=== PATIENT | female | born 1955 | race Caucasian/White ===

== ENCOUNTER 2016-12-27 14:56 | Outpatient (RCR) | payer MEDICAID ==
[~2016-12-27] VITALS: Ht 162.6 cm; Wt 113.4 kg
[~2016-12-27 14:56] MED LIST: ALLP300T PO; ALPR1T PO; ALPR2TAB2 PO; AMLO1CAP31 PO; CITA20TA4 PO; CLCX200C; CLCX200C PO; CYCL-97 PO; CYCL10TA9; CYCL10TA9 PO; FURO40TA4 PO; GEMF600T3 PO; HYDR-2890 PO; HYDR-34 PO; LNS30CCR PO; MELA1TAB; OXYC-12 PO; OXYC-188; ROPI2TAB4 PO; STRESS B COMPLEX; [UNRECOGNIZED DRUG - CODE]
[2016-12-27] MEDS ORDERED: HEParin (CENTRAL IV FLUSH) 500 UNIT/5 ML SYR ONE (15:15)
[2016-12-27] MEDS ORDERED: HEParin (CENTRAL IV FLUSH) 500 UNIT/5 ML SYR IV PRN (15:30)
[2016-12-27 16:03] LABS: BASOPHILS % (AUTO) 0 % (0-10); EOSINOPHILS # (AUTO) 0.3 10^3/uL (0.0-0.3); EOSINOPHILS % (AUTO) 4 % (0-10); LYMPHOCYTES # (AUTO) 2.7 X 10^3 (1.0-4.0); LYMPHOCYTES % (AUTO) 36 % (12-44); MEAN CORPUSCULAR HEMOGLOBIN 28 PG (25-34); MEAN CORPUSCULAR HGB CONC 32 G/DL (32-36); MEAN CORPUSCULAR VOLUME 87 FL (80-99); MEAN PLATELET VOLUME 11.6 FL (7.4-10.4); MONOCYTES # (AUTO) 0.6 X 10^3 (0.0-1.0); MONOCYTES % (AUTO) 8 % (0-12); NEUTROPHILS # (AUTO) 3.9 X 10^3 (1.8-7.8); NEUTROPHILS % (AUTO) 51 % (42-75); PLATELET COUNT 208 10^3/uL (130-400); RED BLOOD COUNT 4.14 10^6/uL (4.35-5.85); RED CELL DISTRIBUTION WIDTH 15.5 % (10.0-14.5); WHITE BLOOD COUNT 7.6 10^3/uL (4.3-11.0)
[2016-12-27 16:24] LABS: ALBUMIN 3.4 G/DL (3.2-4.5); BILIRUBIN,TOTAL 0.2 MG/DL (0.1-1.0); CALCIUM 8.7 MG/DL (8.5-10.1); CREATININE SERUM 1.06 MG/DL (0.60-1.30); POTASSIUM 3.6 MMOL/L (3.6-5.0); TOTAL PROTEIN 6.6 G/DL (6.4-8.2); URIC ACID 5.1 MG/DL (2.6-7.2)
[2016-12-27 16:42] LABS: ERYTHROCYTE SEDIMENTATION RATE 17 MM/HR (0-30)
[2016-12-27 16:50] VITALS: BP 142/70
== END 2017-03-27 | disposition home or self-care (01) ==
LOC: SDC 14:56
PROVIDERS: ATTEND Family Medicine
DX: I10 Essential (primary) hypertension (principal); E78.5 Hyperlipidemia, unspecified; E66.9 Obesity, unspecified; M17.12 Unilateral primary osteoarthritis, left knee; M10.062 Idiopathic gout, left knee; Z45.2 Encounter for adjustment and management of vascular access device
CPT/HCPCS: 36415; 80053; 80061; 83036; 84443; 84550; 85025; 85652; 96523

== ENCOUNTER 2017-07-04 13:06 | Outpatient (CLI) | payer MEDICAID ==
[~2017-07-04] VITALS: Ht 157.5 cm; Wt 104.3 kg
[2017-07-04] MEDS ORDERED: methylPREDNISolone 80 MG/ML (DEPO MEDROL) VIAL ONE (13:35)
[2017-07-04 13:50] VITALS: BP 132/98
[2017-07-04 14:17] VITALS: BP 140/118
== END 2017-07-04 14:20 | disposition home or self-care (01) ==
LOC: CARD 13:06
PROVIDERS: ATTEND Pain Medicine Interventional Pain Medicine
DX: M51.36 Other intervertebral disc degeneration, lumbar region (principal); I10 Essential (primary) hypertension; K21.9 Gastro-esophageal reflux disease without esophagitis; F32.9 Major depressive disorder, single episode, unspecified; M19.91 Primary osteoarthritis, unspecified site; R51 Headache; M10.9 Gout, unspecified; Z87.891 Personal history of nicotine dependence; Z79.899 Other long term (current) drug therapy
CPT/HCPCS: 62323

== ENCOUNTER 2018-04-24 14:24 | Outpatient (RCR) | payer MEDICAID ==
[2018-05-09] MEDS ORDERED: BACL10TA (06:57)
[2018-05-09] MEDS ORDERED: ALLO100T PO (06:57)
[2018-05-09] MEDS ORDERED: BENA40TA5 (06:57)
[2018-05-09] MEDS ORDERED: AMLO10TA6 (06:57)
== END 2018-05-19 15:43 | disposition home or self-care (01) ==
PROVIDERS: ATTEND Orthopaedic Surgery
DX: M25.512 Pain in left shoulder (principal)

== ENCOUNTER 2018-05-09 05:59 | Emergency (ER) | payer MEDICAID ==
[~2018-05-09] VITALS: Ht 157.5 cm; Wt 104.3 kg
[2018-05-09] MEDS ORDERED: PANTOPRAZOLE 40 MG (PROTONIX) VIAL IV STA (06:11)
[2018-05-09] MEDS ORDERED: LACTATED RINGERS 1,000 ML IV ONE (06:11)
[2018-05-09] MEDS ORDERED: ONDANSETRON 4 MG/2 ML (SDV) Z0FRAN IVP ONE (06:15)
--- NOTE | 2018-05-09 06:19 | ED General ---
General Stated Complaint: SOB Source of Information: Patient (LIMITED HISTORIAN ABOUT PMH), EMS, Old Records History of Present Illness Date Seen by Provider: May 09, 2018 Time Seen by Provider: 05:56 Initial Comments PT ARRIVES VIA EMS FROM HOME MULTIPLE COMPLAINTS STATES SHE HAS BEEN SICK SINCE YESTERDAY C/O GENERALIZED ABDOMINAL PAIN BUT MORE ALL ACROSS UPPER ABDOMEN C/O NAUSEA/VOMITING/DIARRHEA--VOMITED > 10 TIMES--STATES LOOKS LIKE COFFEE, DIARRHEA --" ALL MY TOWELS AND ALL MY SHEET'S WORTH" -- UNKNOWN NUMBER OF STOOLS , STATES IS WATERY C/O SHORTNESS OF BREATH C/O BURNING IN CHEST WHEN SHE BREATHES C/O CHILLS DENIES SIGNIFICANT COUGH HAS NOT CHECKED TEMP NO KNOWN SICK CONTACTS OR SUSPICIOUS FOODS PT HAD COPD AND WEARS O2 AT HS PT HAS INHALER AND NEBULIZER AT HOME, USED NEBULIZER X AT 1800 YESTERDAY. HAS NOT USED IT AT ANY OTHER TIME AND HAS NOT USED INHALER. HAS NOT WORN O2 TONIGHT EMS REPORT INITIAL O2 SAT WAS 91% ON ROOM AIR--PT WAS NOT WEARING HOME O2 WHEN THEY ARRIVED EMS GAVE DUO NEB TREATMENT ENROUTE PCP: DR. Amanda ARREOLA Allergies and Home Medications Allergies Coded Allergies: Penicillins (Unverified Allergy, Mild, 12/28/08) codeine (Unverified Allergy, Mild, RASH, SWELLING.. PATIENT CAN TAKE LORTAB, 01/05/09) ketorolac (Unverified Allergy, Mild, 12/28/08) pentazocine (Unverified Allergy, Mild, 12/28/08) aspirin (Unverified Adverse Reaction, Mild, 12/28/08) Home Medications Allopurinol 300 Mg Tab, 300 MG PO DAILY, (Reported) Alprazolam 2 Mg Tablet, 1 MG PO TID PRN, (Reported) TAKES FOR ANXIETY Amlodipine Besylate/Benazepril 1 Each Capsule, 1 TAB PO DAILY, (Reported) Celecoxib 200 Mg Capsule, 1 TAB PO DAILY, (Reported) Citalopram Hydrobromide 20 Mg Tablet, 20 MG PO DAILY, (Reported) Cyclobenzaprine Hcl 10 Mg Tablet, 1 TAB PO TID PRN, (Reported) TAKES FOR MUSCLE TIGHTNESS Furosemide 40 Mg Tablet, 1 EACH PO DAILY, (Reported) Gemfibrozil 600 Mg Tablet, 1 TAB PO DAILY, (Reported) Hydrocodone Bit/Acetaminophen 1 Each Tablet, 1 EACH PO Q6 PRN, (Reported) TAKES FOR PAIN CONTROL Lansoprazole 30 Mg Cap, 30 MG PO DAILY, (Reported) Ropinirole Hcl 2 Mg Tablet, 2 MG PO HS, (Reported) Patient Home Medication List Home Medication List Reviewed: Yes Review of Systems Review of Systems Constitutional: chills EENTM: no symptoms reported Respiratory: see HPI, short of breath Cardiovascular: see HPI, chest pain; No edema, No palpitations Gastrointestinal: see HPI, abdominal pain, diarrhea, loss of appetite, nausea, vomiting Genitourinary: no symptoms reported Musculoskeletal: no symptoms reported Skin: no symptoms reported Psychiatric/Neurological: No Symptoms Reported Hematologic/Lymphatic: No Symptoms Reported Immunological/Allergic: no symptoms reported Past Cuhbuqn-Bsujtm-Mrjbge Hx Patient Social History Alcohol Use: Past History (MODERATE USE IN PAST) Recreational Drug Use: Yes (THC; CHRONIC NARCOTIC AND BENZODIAZEPINE USE/ABUSE/ OVERDOSES; "SPEED" ; TESTED + FOR METH/AMPHETAMINES AND THC 05/09/18 ) Drug of Choice: THC, "SPEED"; CHRONIC NARCOTIC AND BENZO USE/ABUSE/OD'S Smoking Status: Current Everyday Smoker (CIGARETTES WHEN YOUNG, SMOKES PIPE NOW ) Type Used: Cigarettes, Pipe Recent Foreign Travel: No Contact w/Someone Who Travel: No Recent Hopitalizations: No Immunizations Up To Date Tetanus Booster (TDap): Unknown Date of Pneumonia Vaccine: Jun 02, 2009 Seasonal Allergies Seasonal Allergies: No Past Medical History Surgeries: Yes (BACK SURGERY; X 2; PORT LEFT CHEST-BROKE AND WENT INTO HEART AND REMOVED THROUGH FEMORAL ARTERY 04/2010--NOW WITH PORT RIGHT CHEST ; LINQ DEVICE FOR SYNCOPE; BILATERAL KNEE SCOPES; BENIGN THROAT NODULE) Appendectomy, Gallbladder, Orthopedic, Tubal Ligation Respiratory: Yes COPD Cardiac: Yes (NORMAL STRESS TEST, ECHO, TILT TABLE TESTS 10/2014 AND LINQ RECORDING DEVICE INPLANTED 10/2014 FOR SYNCOPE) High Cholesterol, Hypertension, Syncope Neurological: Yes (MEMORY PROBLEMS) Headaches /Migraines Reproductive Disorders: No Sexually Transmitted Disease: No Genitourinary: Yes Renal Failure Gastrointestinal: Yes Colitis, Gastroesophageal Reflux Musculoskeletal: Yes (RESTLESS LEG SYNDROME; KNEE PAIN; CHRONIC GENERALIZED PAIN; CHRONIC NARCOTIC USE) Chronic Back Pain, Gout Endocrine: Yes (OBESE) HEENT: No (TEETH REMOVED) Cancer: No Psychosocial: Yes (OVERDOSES OF NARCOTICS AND BENZODIAZEPINES; PT ADMITS TO BEING A WITCH/PRACTICES WICCA) Anxiety Physical Exam Vital Signs Vital Signs - First Documented 05/09/18 06:00 Temp 99.6 Pulse 93 Resp 23 B/P (MAP) 128/99 (109) Pulse Ox 96 O2 Delivery Nasal Cannula O2 Flow Rate 4.00 Capillary Refill : Height, Weight, BMI Height: 5'2.00" Weight: 230lbs. 0.0oz. 104.224608yn; 42.1 BMI Method:Stated General Appearance: Obese, Other (ANXIOUS, MOANING, SHIVERING/TREMULOUS. CONSTANT MOVEMENTS /THRASHING ALL OVER. ) HEENT: PERRL/EOMI, Other (EDENTULOUS) Neck: Normal Inspection Respiratory: Normal Breath Sounds, No Accessory Muscle Use, No Respiratory Distress, Decreased Breath Sounds (IN BASES), Other (PORT RIGHT CHEST) Cardiovascular: Regular Rate, Rhythm, No Edema, No JVD, No Murmur, Normal Peripheral Pulses Gastrointestinal: Normal Bowel Sounds, No Organomegaly, No Pulsatile Mass, Soft ; No Distended, No Guarding, No Hernia, No Mass, No Rebound; Tenderness ( DIFFUSE TENDERNESS) Back: No CVA Tenderness Extremity: Normal Capillary Refill, Normal Inspection, Normal Range of Motion, Non Tender, No Calf Tenderness, No Pedal Edema Neurologic/Psychiatric: Alert, Oriented x3, No Motor/Sensory Deficits, 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 ) Focused Exam Lactate Level 05/09/18 06:04: Lactic Acid Level 1.92 Lactic Acid Level Progress/Results/Core Measures Suspected Sepsis SIRS Temperature: Pulse: Respiratory Rate: Laboratory Tests 05/09/18 06:04: White Blood Count 11.0 Blood Pressure / Mean: 05/09/18 06:04: Lactic Acid Level 1.92 Laboratory Tests 05/09/18 06:04: Creatinine 1.29, INR Comment 1.1, Platelet Count 279, Total Bilirubin 0.3 Results/Orders Lab Results Laboratory Tests Test 05/09/18 06:04 05/09/18 06:14 05/09/18 07:03 05/09/18 09:20 Range/Units White Blood Count 11.0 4.3-11.0 10^3/uL Red Blood Count 4.47 4.35-5.85 10^6/uL Hemoglobin 12.6 11.5-16.0 G/DL Hematocrit 38 35-52 % Mean Corpuscular Volume 86 80-99 FL Mean Corpuscular Hemoglobin 28 25-34 PG Mean Corpuscular Hemoglobin Concent 33 32-36 G/DL Red Cell Distribution Width 17.6 H 10.0-14.5 % Platelet Count 279 130-400 10^3/uL Mean Platelet Volume 12.5 H 7.4-10.4 FL Neutrophils (%) (Auto) 63 42-75 % Lymphocytes (%) (Auto) 28 12-44 % Monocytes (%) (Auto) 8 0-12 % Eosinophils (%) (Auto) 2 0-10 % Basophils (%) (Auto) 0 0-10 % Neutrophils # (Auto) 6.9 1.8-7.8 X 10^3 Lymphocytes # (Auto) 3.0 1.0-4.0 X 10^3 Monocytes # (Auto) 0.8 0.0-1.0 X 10^3 Eosinophils # (Auto) 0.2 0.0-0.3 10^3/uL Basophils # (Auto) 0.0 0.0-0.1 10^3/uL Prothrombin Time 13.9 12.2-14.7 SEC INR Comment 1.1 0.8-1.4 Activated Partial Thromboplast Time 23 L 24-35 SEC Sodium Level 138 135-145 MMOL/L Potassium Level 3.5 L 3.6-5.0 MMOL/L Chloride Level 109 H 98-107 MMOL/L Carbon Dioxide Level 17 L 21-32 MMOL/L Anion Gap 12 5-14 MMOL/L Blood Urea Nitrogen 26 H 7-18 MG/DL Creatinine 1.29 0.60-1.30 MG/DL Estimat Glomerular Filtration Rate 42 BUN/Creatinine Ratio 20 Glucose Level 117 H 70-105 MG/DL Lactic Acid Level 1.92 0.50-2.00 MMOL/L Calcium Level 8.8 8.5-10.1 MG/DL Corrected Calcium 9.0 8.5-10.1 MG/DL Magnesium Level 2.0 1.8-2.4 MG/DL Total Bilirubin 0.3 0.1-1.0 MG/DL Aspartate Amino Transf (AST/SGOT) 23 5-34 U/L Alanine Aminotransferase (ALT/SGPT) 24 0-55 U/L Alkaline Phosphatase 61 40-136 U/L Troponin I < 0.30 <0.30 NG/ML B-Type Natriuretic Peptide < 10.0 <100.0 PG/ML Total Protein 7.1 6.4-8.2 GM/DL Albumin 3.8 3.2-4.5 GM/DL Amylase Level 33 25-125 U/L Lipase 47 8-78 U/L Serum Alcohol < 10 <10 MG/DL Blood Gas Puncture Site RIGHT RADIAL RIGHT RADIAL Blood Gas Patient Temperature 99.6 100.3 Arterial Blood pH 7.25 *L 7.29 *L 7.37-7.43 Arterial Blood Partial Pressure CO2 46 H 43 35-45 MMHG Arterial Blood Partial Pressure O2 90 80 79-93 MMHG Arterial Blood HCO3 19 L 20 L 23-27 MMOL/L Arterial Blood Total CO2 20.4 L 21.2 21.0-31.0 MMOL/L Arterial Blood Oxygen Saturation 96 95 94-100 % Arterial Blood Base Excess -6.8 L -5.3 L -2.5-2.5 MMOL/L Duran Test YES-POS YES-POS Blood Gas Ventilator Setting NO NO Blood Gas Inspired Oxygen 4L 30% Urine Color YELLOW Urine Clarity CLEAR Urine pH 6 5-9 Urine Specific [place] 1.020 1.016-1.022 Urine Protein 2+ H NEGATIVE Urine Glucose (UA) NEGATIVE NEGATIVE Urine Ketones NEGATIVE NEGATIVE Urine Nitrite NEGATIVE NEGATIVE Urine Bilirubin NEGATIVE NEGATIVE Urine Urobilinogen NORMAL NORMAL MG/DL Urine Leukocyte Esterase NEGATIVE NEGATIVE Urine RBC (Auto) NEGATIVE NEGATIVE Urine RBC NONE /HPF Urine WBC NONE /HPF Urine Squamous Epithelial Cells NONE /HPF Urine Crystals NONE /LPF Urine Bacteria NEGATIVE /HPF Urine Casts NONE /LPF Urine Mucus NEGATIVE /LPF Urine Culture Indicated NO Urine Opiates Screen POSITIVE H NEGATIVE Urine Oxycodone Screen NEGATIVE NEGATIVE Urine Methadone Screen NEGATIVE NEGATIVE Urine Propoxyphene Screen NEGATIVE NEGATIVE Urine Barbiturates Screen NEGATIVE NEGATIVE Ur Tricyclic Antidepressants Screen NEGATIVE NEGATIVE Urine Phencyclidine Screen NEGATIVE NEGATIVE Urine Amphetamines Screen POSITIVE H NEGATIVE Urine Methamphetamines Screen POSITIVE H NEGATIVE Urine Benzodiazepines Screen POSITIVE H NEGATIVE Urine Cocaine Screen NEGATIVE NEGATIVE Urine Cannabinoids Screen POSITIVE H NEGATIVE My Orders Orders - KORY,KACIE K DO Saline Lock/Iv-Start (05/09/18 06:11) Ekg Tracing (05/09/18 06:11) Catheter(Urinary) Insert & Ass 03,15 (05/09/18 06:11) O2 (05/09/18 06:11) Monitor-Rhythm Ecg Trace Only (05/09/18 06:11) Alcohol (05/09/18 06:11) Amylase (05/09/18 06:11) Arterial Blood Gas (05/09/18 06:11) BNP (05/09/18 06:11) Cbc With Automated Diff (05/09/18 06:11) Comprehensive Metabolic Panel (05/09/18 06:11) Drug Screen Stat (Urine) (05/09/18 06:11) Lactic Acid Analyzer (05/09/18 06:11) Lipase (05/09/18 06:11) Magnesium (05/09/18 06:11) Protime With Inr (05/09/18 06:11) Partial Thromboplastin Time (05/09/18 06:11) Troponin I (05/09/18 06:11) Ua Culture If Indicated (05/09/18 06:11) Blood Culture (05/09/18 06:11) Chest 1 View, Ap/Pa Only (05/09/18 06:11) Saline Lock/Iv-Start (05/09/18 06:11) Lactated Ringers (Lr 1000 Ml Iv Solution (05/09/18 06:11) Ondansetron Injection (Zofran Injectio (05/09/18 06:15) Pantoprazole Injection (Protonix Injecti (05/09/18 06:11) Ct Chest/Abdomen/Pelvis Wo (05/09/18 06:55) Ceftriaxone For Iv Use (Rocephin For I (05/09/18 08:00) Ceftriaxone For Iv Use (Rocephin For I (05/09/18 08:01) Ns (Ivpb) (Sodium Chloride 0.9% Ivpb Bag (05/09/18 08:01) Azithromycin Injection (Zithromax Inject (05/09/18 09:15) Arterial Blood Gas (05/09/18 09:06) Medications Given in ED Current Medications Medications Dose Ordered Sig/Shy Route Start Time Stop Time Status Last Admin Dose Admin Azithromycin 500 mg/Sodium Chloride 250 ml @ 250 mls/hr ONCE ONCE IV 05/09/18 09:15 05/09/18 10:14 DC 05/09/18 09:34 250 MLS/HR Ceftriaxone Sodium 1000 mg/ Sodium Chloride 60 ml @ 100 mls/hr ONCE ONCE IV 05/09/18 08:00 05/09/18 11:06 DC 05/09/18 08:17 100 MLS/HR Vital Signs/I&O 05/09/18 05/09/18 05/09/18 05/09/18 06:52 07:37 07:43 08:42 Pulse 109 99 96 100 Resp 21 20 18 18 B/P (MAP) 129/73 (91) 136/88 (104) Pulse Ox 94 96 93 94 O2 Delivery NIV Bilevel NIV Bilevel 05/09/18 05/09/18 09:25 10:55 Pulse 105 100 Resp 24 18 B/P (MAP) 131/76 Pulse Ox 91 93 O2 Delivery NIV Bilevel Capillary Refill : Progress Note : Progress Note O2 SATS 87-88% ON ROOM AIR ON ARRIVAL PT PLACED ON O2 AND SATS UP TO LOW 90'S, THEN PLACED ON BIPAP WITH SIGNIFICANT IMPROVEMENT IN CONDITION AND O2 SATS 985, RESPIRATIONS EVEN AND UNLABORED, AND INCREASED AERATION NO DETERIORATION IN PT'S CONDITION DURING ER STAY ECG Initial ECG Impression Date: May 09, 2018 Initial ECG Impression Time: 06:04 Initial ECG Rate: 98 Initial ECG Rhythm: Normal Sinus (MUCH ARTIFACT) Diagnostic Imaging Comments CXR--RLL INFILTRATE, PER RADIOLOGIST REPORT @ 0747 CT CHEST/ABDOMEN/PELVIS ( NO IV CONTRAST AVAILABLE IN HOSPITAL) --PATCHY AIRSPACE DENSITIES IN RIGHT UPPER AND LOWER LOBES, AND MINIMAL INVOLVEMENT IN RIGHT MIDDLE LOBE. ALSO MILD INVOLVEMENT IN LEFT UPPER LOBE--C/W MULTIFOCAL PNEUMONIA. CHRONIC / STABLE FINDINGS ON ABDOMEN. NO ACUTE PROCESS PER RADIOLOGIST REPORT @ 0855 Reviewed: Reviewed by Me Departure Communication (Admissions) THIS HOSPITAL CURRENTLY ON COMPLETE DIVERSION, NO BEDS CURRENTLY AVAILABLE HERE. 0855--CALLED [facility] HOSPITALIST 0921--CALLED [facility] 0923--SPOKE WITH DR. MENDOZA, HOSPITALIST, ACCEPTS PT FOR ADMIT DELAY IN TRANSFER DUE TO MULTIPLE PATIENTS BEING TRANSFERRED AT THE SAME TIME. Impression Primary Impression: MULTILOBAR PNEUMONIA Additional Impressions: Hypoxia Illicit drug use Acute on chronic respiratory failure Disposition: 02 XFER SHT-TRM HOSP Condition: Improved Departure-Patient Inst. Referrals: BARB MADERA DO (PCP) Primary Care Physician KACIE HORN DO May 09, 2018 06:19
[2018-05-09 06:28] LABS: BASOPHILS % (AUTO) 0 % (0-10); EOSINOPHILS # (AUTO) 0.2 10^3/uL (0.0-0.3); EOSINOPHILS % (AUTO) 2 % (0-10); HEMATOCRIT 38 % (35-52); HEMOGLOBIN 12.6 G/DL (11.5-16.0); LYMPHOCYTES % (AUTO) 28 % (12-44); MEAN CORPUSCULAR HEMOGLOBIN 28 PG (25-34); MEAN CORPUSCULAR HGB CONC 33 G/DL (32-36); MEAN CORPUSCULAR VOLUME 86 FL (80-99); MEAN PLATELET VOLUME 12.5 FL (7.4-10.4); MONOCYTES # (AUTO) 0.8 X 10^3 (0.0-1.0); MONOCYTES % (AUTO) 8 % (0-12); NEUTROPHILS # (AUTO) 6.9 X 10^3 (1.8-7.8); NEUTROPHILS % (AUTO) 63 % (42-75); PLATELET COUNT 279 10^3/uL (130-400); RED BLOOD COUNT 4.47 10^6/uL (4.35-5.85); RED CELL DISTRIBUTION WIDTH 17.6 % (10.0-14.5)
[2018-05-09 06:35] LABS: ABG BASE EXCESS -6.8 MMOL/L (-2.5-2.5); ABG OXYGEN SATURATION 96 % (94-100); ABG PCO2 46 MMHG (35-45); ABG PO2 90 MMHG (79-93); ABG TCO2 20.4 MMOL/L (21.0-31.0)
[2018-05-09 06:38] LABS: ABG PH 7.25 (7.37-7.43); ALLENS TEST YES-POS; INSPIRED O2 4L; PATIENT TEMP 99.6; VENTILATOR NO
[2018-05-09 06:40] LABS: INR 1.1 (0.8-1.4); PROTHROMBIN TIME PATIENT 13.9 SEC (12.2-14.7)
[2018-05-09 06:50] LABS: ALANINE AMINOTRANSFERASE 24 U/L (0-55); ALBUMIN 3.8 GM/DL (3.2-4.5); ALKALINE PHOSPHATASE 61 U/L (40-136); AMYLASE 33 U/L (25-125); BILIRUBIN,TOTAL 0.3 MG/DL (0.1-1.0); BUN/CREATININE RATIO 20; CALCIUM 8.8 MG/DL (8.5-10.1); CARBON DIOXIDE 17 MMOL/L (21-32); CHLORIDE 109 MMOL/L (98-107); CREATININE SERUM 1.29 MG/DL (0.60-1.30); GFR ESTIMATED 42; GLUCOSE 117 MG/DL (70-105); LIPASE 47 U/L (8-78); POTASSIUM 3.5 MMOL/L (3.6-5.0); SODIUM 138 MMOL/L (135-145); TOTAL PROTEIN 7.1 GM/DL (6.4-8.2)
[2018-05-09 06:52] VITALS: BP 153/101
[2018-05-09] MEDS ORDERED: BACL10TA (06:57)
[2018-05-09] MEDS ORDERED: BENA40TA5 (06:57)
[2018-05-09] MEDS ORDERED: ALLO100T PO (06:57)
[2018-05-09] MEDS ORDERED: AMLO10TA6 (06:57)
--- OUTSIDE RECORDS SUMMARY | 2018-05-09 06:57 | XMS REPORT | Continuity of Care Document ---
Author Author [facility] Ctr of [facility] Ctr of [facility] Address Unknown Phone Unavailable Allergies Active Description Code Type Severity Reaction Onset Reported/Identified Relationship to Patient Clinical Status Yes aspirin [id number] Drug Allergy Mild N/A 12/28/2008 Yes ketorolac [id number] Drug Allergy Mild N/A 12/28/2008 Yes Penicillins [id number] Drug Allergy Mild N/A 12/28/2008 Yes pentazocine [id number] Drug Allergy Mild N/A 12/28/2008 Yes codeine [id number] Drug Allergy Mild RASH, SWELLING. 01/05/2009 Yes aspirin Drug Allergy N/A N/A 06/26/2011 Yes codeine Drug Allergy N/A N/A 06/26/2011 Yes Penicillins Drug Allergy N/A N/A 06/26/2011 Yes Talwin Drug Allergy N/A N/A 06/26/2011 Yes Toradol Drug Allergy N/A N/A 08/24/2014 Medications There is no data. Problems Date Dx Coded Attending Type Code Diagnosis Diagnosed By 06/26/2011 MADL DIRECTOR SPEECH LANGUAGE, ANAIS L 278.00 OBESITY UNSPECIFIED 06/26/2011 MADL DIRECTOR SPEECH LANGUAGE, ANAIS L 338.29 OTHER CHRONIC PAIN 06/26/2011 MADL DIRECTOR SPEECH LANGUAGE, ANAIS L 715.00 OSTEOARTHROSIS GENERALIZED INVOLVING UNSPECIFIED SITE 06/26/2011 MADL DIRECTOR SPEECH LANGUAGE, ANAIS L 724.2 LUMBAGO 06/26/2011 MADL DIRECTOR SPEECH LANGUAGE, ANAIS L 278.00 OBESITY UNSPECIFIED 06/26/2011 MADL DIRECTOR SPEECH LANGUAGE, ANAIS L 338.29 OTHER CHRONIC PAIN 06/26/2011 MADL DIRECTOR SPEECH LANGUAGE, ANAIS L 715.00 OSTEOARTHROSIS GENERALIZED INVOLVING UNSPECIFIED SITE 06/26/2011 MADL DIRECTOR SPEECH LANGUAGE, ANAIS L 724.2 LUMBAGO 06/26/2011 MADL DIRECTOR SPEECH LANGUAGE, ANAIS L 278.00 OBESITY UNSPECIFIED 06/26/2011 TRAL DIRECTOR SPEECH LANGUAGE, ANAIS L 338.29 OTHER CHRONIC PAIN 06/26/2011 MADL DIRECTOR SPEECH LANGUAGE, ANAIS L 715.00 OSTEOARTHROSIS GENERALIZED INVOLVING UNSPECIFIED SITE 06/26/2011 MADL DIRECTOR SPEECH LANGUAGE, ANAIS L 724.2 LUMBAGO 12/24/2011 Ot 285.9 ANEMIA NOS 12/24/2011 Ot 348.89 OTHER CONDITIONS OF BRAIN 12/24/2011 Ot 780.2 SYNCOPE AND COLLAPSE 04/03/2012 Ot 278.01 MORBID OBESITY 04/03/2012 Ot 459.81 VENOUS INSUFFICIENCY NOS 04/03/2012 Ot 496 CHR AIRWAY OBSTRUCT NEC 04/03/2012 Ot V58.69 OTH MED,LT, CURRENT USE 04/03/2012 Ot V85.42 BODY MASS INDEX 45.0-49.9, ADULT 08/24/2014 MADL DIRECTOR SPEECH LANGUAGE, ANAIS L 300.00 ANXIETY UNSPEC 08/24/2014 MADL DIRECTOR SPEECH LANGUAGE, ANAIS L 401.1 HYPERTENSION, BENIGN ESSENTIAL 08/24/2014 MADL DIRECTOR SPEECH LANGUAGE, ANAIS L 585.9 CHRONIC KIDNEY DISEASE UNSPECIFIED 08/24/2014 MADL DIRECTOR SPEECH LANGUAGE, ANAIS L 300.00 ANXIETY UNSPEC 08/24/2014 MADL DIRECTOR SPEECH LANGUAGE, ANAIS L 401.1 HYPERTENSION, BENIGN ESSENTIAL 08/24/2014 MADL DIRECTOR SPEECH LANGUAGE, ANAIS L 585.9 CHRONIC KIDNEY DISEASE UNSPECIFIED 08/24/2014 MADL DIRECTOR SPEECH LANGUAGE, ANAIS L 300.00 ANXIETY UNSPEC 08/24/2014 MADL DIRECTOR SPEECH LANGUAGE, ANAIS L 401.1 HYPERTENSION, BENIGN ESSENTIAL 08/24/2014 MADL DIRECTOR SPEECH LANGUAGE, ANAIS L 585.9 CHRONIC KIDNEY DISEASE UNSPECIFIED 08/25/2014 Ot 780.2 08/25/2014 Ot 799.02 08/25/2014 Ot V72.84 08/30/2014 MADL DIRECTOR SPEECH LANGUAGE, ANAIS L 465.9 UPPER RESPIRATORY INFECTION 08/30/2014 MADL DIRECTOR SPEECH LANGUAGE, ANAIS L 491.21 OBSTRUCTIVE CHRONIC BRONCHITIS WITH (ACUTE) EXACERBATION 09/21/2014 MADL, ANAIS L NEUROLOGY DIRECTOR Ot 300.00 09/21/2014 MADL, ANAIS L NEUROLOGY DIRECTOR Ot 382.9 09/21/2014 MADLJULIAANAIS L NEUROLOGY DIRECTOR Ot 403.10 09/21/2014 MADLJULIAANAIS L NEUROLOGY DIRECTOR Ot 585.9 09/21/2014 MADL, ANAIS L NEUROLOGY DIRECTOR Ot 715.00 09/21/2014 MADL, ANAIS L NEUROLOGY DIRECTOR Ot 724.2 11/25/2014 Ot 305.1 11/25/2014 Ot 401.9 11/25/2014 Ot 496 11/25/2014 Ot 786.50 11/26/2014 Ot 305.1 11/26/2014 Ot 401.9 11/26/2014 Ot 496 11/26/2014 Ot 786.50 11/26/2014 Ot 305.1 11/26/2014 Ot 401.9 11/26/2014 Ot 496 11/26/2014 Ot 780.2 11/26/2014 Ot 786.50 02/14/2015 ROSALIE CASAREZ DIRECTOR SPEECH LANGUAGE Ot 719.46 JOINT PAIN-L/LEG 02/14/2015 ROSALIE CASAREZ DIRECTOR SPEECH LANGUAGE Ot V65.2 PERSON FEIGNING ILLNESS 07/16/2016 Ot 780.2 SYNCOPE AND COLLAPSE 07/16/2016 Ot 799.02 HYPOXEMIA 07/16/2016 Ot V72.84 EXAM PRE- OPERATIVE NOS 07/16/2016 MADLJULIAANAIS L NEUROLOGY DIRECTOR Ot 300.00 ANXIETY STATE NOS 07/16/2016 MADL, ANAIS L NEUROLOGY DIRECTOR Ot 382.9 OTITIS MEDIA NOS 07/16/2016 MADL, ANAIS L NEUROLOGY DIRECTOR Ot 403.10 HYPTNSV CHR KID DIS, BENIGN, W CHR KD ST 07/16/2016 MADL, ANAIS L NEUROLOGY DIRECTOR Ot 585.9 CHRONIC KIDNEY DISEASE, UNSPECIFIED 07/16/2016 MADL, ANAIS L NEUROLOGY DIRECTOR Ot 715.00 GENERAL OSTEOARTHROSIS 07/16/2016 MADL, ANAIS L NEUROLOGY DIRECTOR Ot 724.2 LUMBAGO 07/16/2016 Ot 305.1 TOBACCO USE DISORDER 07/16/2016 Ot 401.9 HYPERTENSION NOS 07/16/2016 Ot 496 CHR AIRWAY OBSTRUCT NEC 07/16/2016 Ot 786.50 CHEST PAIN NOS 07/16/2016 Ot 305.1 TOBACCO USE DISORDER 07/16/2016 Ot 401.9 HYPERTENSION NOS 07/16/2016 Ot 496 CHR AIRWAY OBSTRUCT NEC 07/16/2016 Ot 786.50 CHEST PAIN NOS 07/16/2016 Ot 305.1 TOBACCO USE DISORDER 07/16/2016 Ot 401.9 HYPERTENSION NOS 07/16/2016 Ot 496 CHR AIRWAY OBSTRUCT NEC 07/16/2016 Ot 780.2 SYNCOPE AND COLLAPSE 07/16/2016 Ot 786.50 CHEST PAIN NOS 07/18/2016 STACY ARREOLA MD Ot Z45.2 ENCOUNTER FOR ADJUSTMENT AND MANAGEMENT 07/31/2016 STACY ARREOLA MD, Ot Z45.2 ENCOUNTER FOR ADJUSTMENT AND MANAGEMENT 01/01/2017 STACY ARREOLA MD Ot E66.9 OBESITY, UNSPECIFIED 01/01/2017 STACY ARREOLA MD, Ot E78.5 HYPERLIPIDEMIA, UNSPECIFIED 01/01/2017 STACY ARREOLA MD Ot I10 ESSENTIAL (PRIMARY) HYPERTENSION 01/01/2017 STACY ARREOLA MD Ot M10.062 IDIOPATHIC GOUT, LEFT KNEE 01/01/2017 STACY ARREOLA MD Ot M17.12 UNILATERAL PRIMARY OSTEOARTHRITIS, LEFT 01/01/2017 STACY ARREOLA MD Ot Z45.2 ENCOUNTER FOR ADJUSTMENT AND MANAGEMENT 01/16/2017 STACY ARREOLA MD Ot E66.9 OBESITY, UNSPECIFIED 01/16/2017 STACY ARREOLA MD, Ot E78.5 HYPERLIPIDEMIA, UNSPECIFIED 01/16/2017 STACY ARREOLA MD Ot I10 ESSENTIAL (PRIMARY) HYPERTENSION 01/16/2017 STACY ARREOLA MD Ot M10.062 IDIOPATHIC GOUT, LEFT KNEE 01/16/2017 STACY ARREOLA MD Ot M17.12 UNILATERAL PRIMARY OSTEOARTHRITIS, LEFT 01/16/2017 STACY ARREOLA MD Ot Z45.2 ENCOUNTER FOR ADJUSTMENT AND MANAGEMENT 03/27/2017 STACY ARREOLA MD Ot E66.9 OBESITY, UNSPECIFIED 03/27/2017 STACY ARREOLA MD Ot E78.5 HYPERLIPIDEMIA, UNSPECIFIED 03/27/2017 STACY ARREOLA MD Ot I10 ESSENTIAL (PRIMARY) HYPERTENSION 03/27/2017 STACY ARREOLA MD Ot M10.062 IDIOPATHIC GOUT, LEFT KNEE 03/27/2017 STACY ARREOLA MD Ot M17.12 UNILATERAL PRIMARY OSTEOARTHRITIS, LEFT 03/27/2017 STACY ARREOLA MD Ot Z45.2 ENCOUNTER FOR ADJUSTMENT AND MANAGEMENT 07/02/2017 Ot V72.84 EXAM PRE- OPERATIVE NOS 07/02/2017 MADL, ANAIS L NEUROLOGY DIRECTOR Ot 300.00 ANXIETY STATE NOS 07/02/2017 MADL, ANAIS L NEUROLOGY DIRECTOR Ot 382.9 OTITIS MEDIA NOS 07/02/2017 MADL, ANAIS L NEUROLOGY DIRECTOR Ot 403.10 HYPTNSV CHR KID DIS, BENIGN, W CHR KD ST 07/02/2017 MADL, ANAIS L NEUROLOGY DIRECTOR Ot 585.9 CHRONIC KIDNEY DISEASE, UNSPECIFIED 07/02/2017 MADL, ANAIS L NEUROLOGY DIRECTOR Ot 715.00 GENERAL OSTEOARTHROSIS 07/02/2017 MADL, ANAIS L NEUROLOGY DIRECTOR Ot 724.2 LUMBAGO 07/02/2017 Ot 305.1 TOBACCO USE DISORDER 07/02/2017 Ot 401.9 HYPERTENSION NOS 07/02/2017 Ot 496 CHR AIRWAY OBSTRUCT NEC 07/02/2017 Ot 786.50 CHEST PAIN NOS 07/02/2017 Ot 305.1 TOBACCO USE DISORDER 07/02/2017 Ot 401.9 HYPERTENSION NOS 07/02/2017 Ot 496 CHR AIRWAY OBSTRUCT NEC 07/02/2017 Ot 786.50 CHEST PAIN NOS 07/02/2017 Ot 305.1 TOBACCO USE DISORDER 07/02/2017 Ot 401.9 HYPERTENSION NOS 07/02/2017 Ot 496 CHR AIRWAY OBSTRUCT NEC 07/02/2017 Ot 780.2 SYNCOPE AND COLLAPSE 07/02/2017 Ot 786.50 CHEST PAIN NOS 07/02/2017 STACY ARREOLA MD Ot Z45.2 ENCOUNTER FOR ADJUSTMENT AND MANAGEMENT 07/02/2017 STACY ARREOLA MD Ot E66.9 OBESITY, UNSPECIFIED 07/02/2017 STACY ARREOLA MD Ot E78.5 HYPERLIPIDEMIA, UNSPECIFIED 07/02/2017 STACY ARREOLA MD Ot I10 ESSENTIAL (PRIMARY) HYPERTENSION 07/02/2017 STACY ARREOLA MD Ot M10.062 IDIOPATHIC GOUT, LEFT KNEE 07/02/2017 STACY ARREOLA MD Ot M17.12 UNILATERAL PRIMARY OSTEOARTHRITIS, LEFT 07/02/2017 STACY ARREOLA MD Ot Z45.2 ENCOUNTER FOR ADJUSTMENT AND MANAGEMENT 07/04/2017 CHIO ESTRADA DO Ot F32.9 MAJOR DEPRESSIVE DISORDER, SINGLE EPISOD 07/04/2017 CHIO ESTRADA DO Ot I10 ESSENTIAL (PRIMARY) HYPERTENSION 07/04/2017 CHIO ESTRADA DO Ot K21.9 GASTRO-ESOPHAGEAL REFLUX DISEASE WITHOUT 07/04/2017 CHIO ESTRADA DO Bryan Ot M10.9 GOUT, UNSPECIFIED 07/04/2017 CHIO ESTRADA DO Ot M19.91 PRIMARY OSTEOARTHRITIS, UNSPECIFIED SITE 07/04/2017 CHIO ESTRADA DO Bryan Ot M51.36 OTHER INTERVERTEBRAL DISC DEGENERATION, 07/04/2017 FRANCISCASCHUYLER BRADLEY CHIO Bryan Ot R51 HEADACHE 07/04/2017 CHIO ESTRADA DO Ot Z79.899 OTHER NURSING HOME (CURRENT) DRUG THERAPY 07/04/2017 CHIO ESTRADA DO Josep Z87.891 PERSONAL HISTORY OF NICOTINE DEPENDENCE Procedures Code Description [place] [address] CMP 08/30/2014 98179 TSH 08/30/2014 32730 CBC 08/30/2014 NEPHROLOG [facility], 08/30/2014 44219 OXIMETRY 08/30/2014 30196 OXIMETRY 08/31/2014 99646 [employer] 09/01/2014 13245 URINE DRUG SCREEN (IN-HOUSE ) 09/01/2014 Results Test Result Range Complete blood count (CBC) with automated white blood cell (WBC) differential - 12/27/16 15:35 Blood leukocytes automated count (number/volume) 7.6 10*3/uL 4.3-11.0 Blood erythrocytes automated count (number/volume) 4.14 10*6/uL 4.35-5.85 Venous blood hemoglobin measurement (mass/volume) 11.6 g/dL 11.5-16.0 Blood hematocrit (volume fraction) 36 % 35-52 Automated erythrocyte mean corpuscular volume 87 [foz_us] 80-99 Automated erythrocyte mean corpuscular hemoglobin (mass per erythrocyte) 28 pg 25-34 Automated erythrocyte mean corpuscular hemoglobin concentration measurement ( mass/volume) 32 g/dL 32-36 Automated erythrocyte distribution width ratio 15.5 % 10.0-14.5 Automated blood platelet count (count/volume) 208 10*3/uL 130-400 Automated blood platelet mean volume measurement 11.6 [foz_us] 7.4-10.4 Automated blood neutrophils/100 leukocytes 51 % 42-75 Automated blood lymphocytes/100 leukocytes 36 % 12-44 Blood monocytes/100 leukocytes 8 % 0-12 Automated blood eosinophils/100 leukocytes 4 % 0-10 Automated blood basophils/100 leukocytes 0 % 0-10 Blood neutrophils automated count (number/volume) 3.9 10*3 1.8-7.8 Blood lymphocytes automated count (number/volume) 2.7 10*3 1.0-4.0 Blood monocytes automated count (number/volume) 0.6 10*3 0.0-1.0 Automated eosinophil count 0.3 10*3/uL 0.0-0.3 Automated blood basophil count (count/volume) 0.0 10*3/uL 0.0-0.1 Comprehensive metabolic panel - 12/27/16 15:35 Serum or plasma sodium measurement (moles/volume) 144 mmol/L 135-145 Serum or plasma potassium measurement (moles/volume) 3.6 mmol/L 3.6-5.0 Serum or plasma chloride measurement (moles/volume) 111 mmol/L 98-107 Carbon dioxide 24 mmol/L 21-32 Serum or plasma anion gap determination (moles/volume) 9 mmol/L 5-14 Serum or plasma urea nitrogen measurement (mass/volume) 18 mg/dL 7-18 Serum or plasma creatinine measurement (mass/volume) 1.06 mg/dL 0.60-1.30 Serum or plasma urea nitrogen/creatinine mass ratio 17 NRG Serum or plasma creatinine measurement with calculation of estimated glomerular filtration rate 53 NRG Serum or plasma glucose measurement (mass/volume) 93 mg/dL 70-105 Serum or plasma calcium measurement (mass/volume) 8.7 mg/dL 8.5-10.1 Serum or plasma total bilirubin measurement (mass/volume) 0.2 mg/dL 0.1-1.0 Serum or plasma alkaline phosphatase measurement (enzymatic activity/volume) 69 U/L 40-136 Serum or plasma aspartate aminotransferase measurement (enzymatic activity/ volume) 25 U/L 5-34 Serum or plasma alanine aminotransferase measurement (enzymatic activity/volume ) 22 U/L 0-55 Serum or plasma protein measurement (mass/volume) 6.6 g/dL 6.4-8.2 Serum or plasma albumin measurement (mass/volume) 3.4 g/dL 3.2-4.5 Serum or plasma uric acid measurement (mass/volume) - 12/27/16 15:35 Serum or plasma uric acid measurement (mass/volume) 5.1 mg/dL 2.6-7.2 Lipid 1996 panel - 12/27/16 15:35 Serum or plasma triglyceride measurement (mass/volume) 172 mg/dL <150 Serum or plasma cholesterol measurement (mass/volume) 104 mg/dL < 200 Serum or plasma cholesterol in HDL measurement (mass/volume) 28 mg/ dL 40-60 Cholesterol in LDL [mass/volume] in serum or plasma by direct assay 47 mg/dL 1-129 Serum or plasma cholesterol in VLDL measurement (mass/volume) 34 mg/ dL 5-40 Erythrocyte sedimentation rate by westergren method - 12/27/16 15:35 Erythrocyte sedimentation rate by westergren method 17 mm 0-30 Serum or plasma thyrotropin measurement by detection limit <=0.05 miu/l (units/ volume) - 12/27/16 15:35 Serum or plasma thyrotropin measurement by detection limit <=0.05 miu/l (units/ volume) 0.41 u[iU]/mL 0.35-4.94 Hemoglobin A1c - 12/27/16 15:35 Hemoglobin A1c 5.8 % 4.5-6.2 Encounters ACCT No. Visit Date/Time Discharge Status Pt. Type Provider Facility Loc./Unit Complaint [id number] 09/01/2014 15:25:00 09/01/2014 23:59:59 CLS Outpatient ANAIS COLLADO APRN [id number] 08/30/2014 13:19:00 08/30/2014 23:59:59 CLS Outpatient ANAIS COLLADO APRN [id number] 08/30/2014 10:11:00 08/30/2014 23:59:59 CLS Outpatient ANAIS COLLADO APRN [id number] 02/14/2015 16:16:10 ACT Document Registration [id number] 03/21/2018 12:59:00 03/21/2018 12:59:00 CAN Preadmit BARB MADERA DO [facility] LEFT SHOULDER PAIN [id number] 07/04/2017 13:06:00 07/04/2017 14:20:00 DIS Outpatient CHIO ESTRADA DO [facility] CARD M51.36 [id number] 03/28/2017 00:16:00 03/28/2017 23:59:59 CLS Preadmit STACY ARREOLA MD [facility] Z45.2 [id number] 12/27/2016 14:56:00 03/27/2017 00:01:00 DIS Outpatient STACY ARREOLA MD [facility] Z45.2 [id number] 07/16/2016 12:31:00 07/16/2016 23:59:59 CLS Outpatient STACY ARREOLA MD [facility] Z45.2 ENCOUNTER FOR ADJUSTMENT [id number] 02/14/2015 16:10:00 02/14/2015 16:20:00 DIS Emergency ROSALIE CASAREZ APRN [facility] RT KNEE PAIN [id number] 08/25/2014 11:09:00 08/25/2014 23:59:59 CLS Outpatient ANAIS COLLADO [facility] OSTEROARTHROSIS,CKD, HYPERTENSION [id number] 11/26/2014 12:51:00 Document Registration [id number] 11/26/2014 12:51:00 Document Registration [id number] 11/04/2014 10:45:00 Document Registration [id number] 08/25/2014 11:03:00 Document Registration [id number] 08/25/2014 11:03:00 Document Registration [id number] 04/03/2012 11:14:00 Document Registration [id number] 04/02/2012 15:55:00 Document Registration [id number] 01/03/2012 10:43:00 Document Registration [id number] 12/24/2011 19:05:00 Document Registration
[2018-05-09 07:09] LABS: BILIRUBIN,URINE NEGATIVE (NEGATIVE); CLARITY,URINE CLEAR; COLOR,URINE YELLOW; GLUCOSE, URINE (UA) NEGATIVE (NEGATIVE); KETONES,URINE NEGATIVE (NEGATIVE); LEUKOCYTE ESTERASE ,URINE NEGATIVE (NEGATIVE); NITRITE,URINE NEGATIVE (NEGATIVE); PH,URINE 6 (5-9); PROTEIN,URINE 2+ (NEGATIVE); UROBILINOGEN,URINE NORMAL (NORMAL)
[2018-05-09 07:20] LABS: BACTERIA,URINE NEGATIVE /HPF
[2018-05-09 07:34] LABS: AMPHETAMINE SCREEN, URINE POSITIVE (NEGATIVE); BARBITURATE SCREEN URINE NEGATIVE (NEGATIVE); BENZODIAZEPINES SCREEN URINE POSITIVE (NEGATIVE); CANNABINOID SCREEN, URINE POSITIVE (NEGATIVE); COCAINE SCREEN URINE NEGATIVE (NEGATIVE); METHADONE STAT NEGATIVE (NEGATIVE); METHAMPHETAMINE SCREEN URINE S POSITIVE (NEGATIVE); OPIATE SCREEN URINE POSITIVE (NEGATIVE); OXYCODONE STAT NEGATIVE (NEGATIVE); PROPOXYPHENE STAT NEGATIVE (NEGATIVE); TRICYCLIC ANTIDEPRESSANTS SCRE NEGATIVE (NEGATIVE)
--- NOTE | 2018-05-09 07:36 | Diagnostic Imaging Report ---
INDICATION: Shortness of air COMPARISON STUDY: Chest from 2012. FINDINGS: Portable view of the chest demonstrates a right-sided Port-A-Cath remaining in place. The heart size and vascularity are normal. There are no new infiltrates in the right lower lung. IMPRESSION: There are new infiltrates in the right lower lung. Dictated by: Dictated on workstation # [id number]
[2018-05-09 07:43] VITALS: BP 129/73
[2018-05-09] MEDS ORDERED: cefTRIAXone FOR IV USE 1,000 MG in NS (IVPB) 50 ML IV ONE (08:00)
[2018-05-09] MEDS ORDERED: cefTRIAXone 1 GM/10 ML for IV (ROCEPHIN) IV ONE (08:01)
[2018-05-09] MEDS ORDERED: NS (IVPB) 50 ML ONE (08:01)
--- NOTE | 2018-05-09 08:10 | Diagnostic Imaging Report ---
PROCEDURE: CT chest, abdomen, and pelvis without contrast. TECHNIQUE: Multiple contiguous axial images were obtained through the chest, abdomen, and pelvis without the use of intravenous contrast. INDICATION: Shortness of air, abdominal pelvic portion COMPARISON: 11/19/2009, no previous chest CT. Chest: There are patchy nodular airspace opacities involving the right upper and lower lobes with minimal involvement of the right middle lobe. The appearance is most consistent with multifocal pneumonia. There is mild involvement in the posterior apical portion of the left upper lobe. There is no findings of pulmonary abscess, empyema or effusion. There is a small hiatal hernia. No appreciable lymphadenopathy revealed at this nonenhanced exam. No acute soft tissue or osseous chest wall disease. Abdomen pelvis: Unobstructed nodularity of the kidneys unchanged in part owing to persistent lobation as well as owing to multiple low-density nodules believed cyst. This is all unchanged from 2010. There is nonobstructing renal calcifications also chronic. No opaque ureteral stone or hydronephrosis. No perinephric edema. The gallbladder is surgically absent. The liver, spleen, adrenals and pancreas were unremarkable. Atherosclerotic aorta is nonaneurysmal. There is no small or large bowel obstruction. The uterus, adnexa and urinary bladder appeared unremarkable. The osseous structures showed a grade 1 L5 on S1 anterolisthesis with chronic spondylolysis defects and posterior fusion with bi-pedicular screws. No acute bony abnormality. There is no abdominal, pelvic, mesenteric or retroperitoneal lymphadenopathy. There were no findings of appendicitis or diverticulitis and there is no bowel obstruction. No ascites or fluid collection. IMPRESSION: Findings most consistent with multifocal pneumonia most notably in the right lung without evidence of abscess or pleural fluid. Small hiatal hernia. The abdominal pelvic portion of the study shows unchanged renal lobations, cysts and nonobstructing calcifications with previous cholecystectomy and previous lumbar spinal instrumentation. No acute appearing abdominal pelvic abnormality. Dictated by: Dictated on workstation # [id number]
[2018-05-09 08:42] VITALS: BP 136/88
[2018-05-09] MEDS ORDERED: AZITHROMYCIN INJECTION 500 MG in NS (IVPB) 250 ML IV ONE (09:15)
[2018-05-09 09:29] LABS: ABG BASE EXCESS -5.3 MMOL/L (-2.5-2.5); ABG OXYGEN SATURATION 95 % (94-100); ABG PCO2 43 MMHG (35-45); ABG PO2 80 MMHG (79-93); ABG TCO2 21.2 MMOL/L (21.0-31.0)
[2018-05-09 09:53] LABS: ABG PH 7.29 (7.37-7.43); ALLENS TEST YES-POS; INSPIRED O2 30%; PATIENT TEMP 100.3; VENTILATOR NO
[2018-05-09 10:55] VITALS: BP 131/76
== END 2018-05-09 11:06 | disposition short-term general hospital (02) ==
LOC: EDUNIT# 05:59 → ER 06:00
DX: J18.1 Lobar pneumonia, unspecified organism (principal); F19.10 Other psychoactive substance abuse, uncomplicated; J96.21 Acute and chronic respiratory failure with hypoxia; J44.9 Chronic obstructive pulmonary disease, unspecified; E78.00 Pure hypercholesterolemia, unspecified; I10 Essential (primary) hypertension; G43.909 Migraine, unspecified, not intractable, without status migrainosus; K21.9 Gastro-esophageal reflux disease without esophagitis; G25.81 Restless legs syndrome; E66.9 Obesity, unspecified; F41.9 Anxiety disorder, unspecified; F12.10 Cannabis abuse, uncomplicated; F15.10 Other stimulant abuse, uncomplicated; F17.210 Nicotine dependence, cigarettes, uncomplicated; Z98.51 Tubal ligation status; Z68.41 Body mass index [BMI] 40.0-44.9, adult; Z90.89 Acquired absence of other organs; Z98.890 Other specified postprocedural states; Z88.0 Allergy status to penicillin; Z88.5 Allergy status to narcotic agent; Z88.4 Allergy status to anesthetic agent; Z88.8 Allergy status to other drugs, medicaments and biological substances; Z88.6 Allergy status to analgesic agent
CPT/HCPCS: 36415; 36600; 51702; 71045; 71250; 74176; 80053; 80306; 80320; 81000; 82150; 82805; 83605; 83690; 83735; 83880; 84484; 85025; 85610; 85730; 87040; 93005; 93041; 96361; 96365; 96367; 96375; 99291

== ENCOUNTER 2019-09-01 05:34 | Outpatient (CLI) | payer MEDICAID ==
[~2019-09-01] VITALS: Ht 157.5 cm; Wt 113.6 kg
[~2019-09-01 05:34] MED LIST changes: +ALLO100T PO; +AMLO10TA7 PO; +BACL10TA PO; +BENA40TA5 PO
[2019-09-01] MEDS ORDERED: FURO20TA4 PO (13:30)
[2019-09-01] MEDS ORDERED: CITA40TA11 PO (13:30)
[2019-09-01] MEDS ORDERED: ROPI1TAB2 PO (13:30)
[2019-09-01] MEDS ORDERED: SIMV40TA4 PO (13:33)
[2019-09-01] MEDS ORDERED: POTA10CA43 PO (13:33)
[2019-09-01] MEDS ORDERED: LOSA50TA63 PO (13:33)
[2019-09-01] MEDS ORDERED: GABA-486 PO ×2 (13:33)
[2019-09-01] MEDS ORDERED: OMEP20CA13 PO (13:33)
== END 2019-09-01 13:36 | disposition home or self-care (01) ==
LOC: PREOP 05:34
PROVIDERS: ATTEND Specialist
DX: Z01.818 Encounter for other preprocedural examination (principal)

== ENCOUNTER 2019-09-04 09:43 | Day surgery (SDC) | payer MEDICAID ==
[~2019-09-04] VITALS: Ht 157.5 cm; Wt 113.6 kg
[~2019-09-04 09:43] MED LIST changes: +CITA40TA11 PO; +FURO20TA4 PO; +GABA-486 PO; +LOSA50TA63 PO; +OMEP20CA13 PO; +POTA10CA43 PO; +ROPI1TAB2 PO; +SIMV40TA4 PO
[2019-09-04 09:45] VITALS: BP 132/82
[2019-09-04] MEDS ORDERED: TIMOLOL MALEATE 0.5% 5 ML (TIMOPTIC) BTL OU PRN (10:00)
[2019-09-04] MEDS ORDERED: LIDOCAINE PF 1% 2 ML VIAL IR PRN (10:00)
[2019-09-04] MEDS ORDERED: MOXIFLOXACIN OPHTH SOLN 5 MG/ML 0.3 ML SYRINGE OP ONE (10:00)
[2019-09-04] MEDS ORDERED: POVIDONE (BETADINE) OPHTH SOLN 5% 30 ML OP ONE (10:00)
[2019-09-04] MEDS: TETRACAINE 0.5% OPHTH SOLN 4 ML BTL (SINGLE DOSE ONLY) OU PRN ×4 (10:01→10:34)
[2019-09-04] MEDS: CYCLOPENTOLATE 1% (CYCLOGYL) 2 ML DROPS OP SCH ×3 (10:20→10:34)
[2019-09-04] MEDS: PHENYLEPHRINE 10% OPHTH (NEO-SYN) 5 ML BTL OU SCH ×3 (10:20→10:34)
--- NOTE | 2019-09-04 10:25 | Ophthalmologist Pre-Op Note ---
Pre-Operative Progress Note H&P Reviewed The H&P was reviewed, patient examined and no changes noted. Date H&P Reviewed: Sep 04, 2019 Time H&P Reviewed: 10:24 Pre-Op Dx Cataract, Right Eye MAR WHITESIDE MD Sep 04, 2019 10:25
[2019-09-04] MEDS ORDERED: MIDAZOLAM 2 MG/2 ML (VERSED) VIAL ONE (10:37)
--- NOTE | 2019-09-04 11:01 | Ophthalmology Operative Report ---
Cataract removal/placement IOL PREOPERATIVE DIAGNOSIS: Cataract Right Eye POSTOPERATIVE DIAGNOSIS: Cataract Right Eye PROCEDURE: Cataract removal and placement of posterior chamber implant, right eye SURGEON: Philippe Whiteside ANESTHESIA: Topical with sedation COMPLICATIONS: None ESTIMATED BLOOD LOSS: Minimal DESCRIPTION OF PROCEDURE: After proper informed consent was obtained, the patient, a 64 female, was taken to the Operating Room and the right eye was anesthetized with tetracaine. The right eye was then prepped and draped in the usual manner. A wire lid speculum was placed. A paracentesis was made at the left hand position. Preservative free lidocaine was injected into the anterior chamber followed by viscoelastic. A clear corneal incision was made in the temporal position. A capsulorrhexis was preformed and the central nuclear and cortical material were removed. The posterior capsule was polished and Mauri 18.0 [id number] IOL was placed into the capsular bag. The residual viscoelastic was aspirated and balanced saline solution was injected into the anterior chamber. Moxifloxacin was injected into the anterior chamber. The wound was checked and found to be water tight. The patient tolerated the procedure well without complications. PHILIPPE WHITESIDE MD Sep 04, 2019 11:01
[2019-09-04 11:08] VITALS: BP 120/84
--- NOTE | 2019-09-04 11:13 | Anesthesia-General Post-Op ---
MAC Patient Condition Mental Status/LOC: Same as Preop Cardiovascular: Satisfactory Nausea/Vomiting: Absent Respiratory: Satisfactory Pain: Controlled Complications: Absent Post Op Complications Complications None Follow Up Care/Instructions Patient Instructions None needed. Anesthesiology Discharge Order Discharge Order Patient is doing well, no complaints, stable vital signs, no apparent adverse anesthesia problems. BRAXTON DE ANDA DO Sep 04, 2019 11:13
[2019-09-04] MEDS ORDERED: acetaZOLAMIDE ER 500 MG CAP (DIAMOX SEQUELS) PO ONE (12:30)
== END 2019-09-04 11:08 | disposition home or self-care (01) ==
LOC: SDC 09:43
PROVIDERS: ATTEND Specialist
DX: H25.11 Age-related nuclear cataract, right eye (principal); I10 Essential (primary) hypertension; E78.5 Hyperlipidemia, unspecified; E66.01 Morbid (severe) obesity due to excess calories; Z88.0 Allergy status to penicillin; Z88.5 Allergy status to narcotic agent; Z88.8 Allergy status to other drugs, medicaments and biological substances; Z88.6 Allergy status to analgesic agent; Z79.899 Other long term (current) drug therapy; Z87.891 Personal history of nicotine dependence; Z68.42 Body mass index [BMI] 45.0-49.9, adult; Z83.3 Family history of diabetes mellitus; Z80.9 Family history of malignant neoplasm, unspecified

== ENCOUNTER 2019-11-09 10:04 | Outpatient (RCR) | payer MEDICAID ==
[~2019-11-09] VITALS: Ht 157.5 cm; Wt 113.6 kg
[~2019-11-09 10:04] MED LIST changes: -OMEP20CA13 PO; +OMEP20CA18 PO; +ROPI1TAB PO; -ROPI1TAB2 PO; +SIMV40TA25 PO; -SIMV40TA4 PO
[2019-11-09 10:25] VITALS: BP 145/99
--- NOTE | 2019-11-09 11:37 | Diagnostic Imaging Report ---
Indication: PICC line placement Portable chest 11:30 AM Right subclavian central line tip projects over the SVC. Right upper extremity PICC line tip projects over the right axillary vein near the subclavian. Lungs are clear. There are no effusions or pneumothoraces. IMPRESSION: Right upper extremity PICC line tip appears be in the axillary vein segment. Dictated by: Dictated on workstation # [id number]
--- NOTE | 2019-11-09 14:38 | Diagnostic Imaging Report ---
Indication: PICC line placement Right subclavian Groshong catheter tip projects over the right innominate vein. Left upper extremity PICC line tip projects over the innominate confluence. Heart size and pulmonary vascularity are normal. Lungs are clear. There are no effusions or pneumothoraces. IMPRESSION: Left upper extremity PICC line tip projects over innominate confluence Dictated by: Dictated on workstation # [id number]
--- NOTE | 2019-11-09 15:10 | NUR ---
DR. NORTON CALLED AND TALKED TO REGARDING PLACEMENT OF PICC LINE, HE STATED HE'D LEAVE IT & CALL DR. RAVI TO MAKE SURE IT'S OK WELL.
--- NOTE | 2019-11-09 15:15 | NUR ---
DR. RAVI CALLED AT THIS TIME, EXPLAINED TO HER WELL ABOUT PT.'S PICC LINE PLACEMENT. SHE STATED IT'S ONLY FOR UPCOMING PROCEDURE, SO LEAVE IT AT THIS TIME.
== END 2019-11-09 14:45 | disposition home or self-care (01) ==
LOC: SDC 10:04
PROVIDERS: ATTEND Internal Medicine
DX: Z01.818 Encounter for other preprocedural examination (principal)
CPT/HCPCS: 36569; 71045; 76937